=== PATIENT | male | born 1950 | race Caucasian/White ===

== ENCOUNTER 2021-05-03 14:24 | Inpatient (IN) ==
[2021-05-03] MEDS ORDERED: Acetaminophen 325 MG TABLET PO PRN (17:03)
[2021-05-03] MEDS ORDERED: Ondansetron 4 MG/2 ML VIAL IVP PRN (17:03)
[2021-05-03] MEDS ORDERED: Naloxone 0.4 MG/ML INJ IVP PRN (17:03)
[2021-05-03] MEDS ORDERED: Nitroglycerin 0.4 MG TAB.SUBL SL PRN (17:06)
[2021-05-03] MEDS ORDERED: Clotrimazole 1% CRM 15 GM TUBE TP PRN (17:06)
[2021-05-03] MEDS: Gabapentin 300 MG CAPSULE PO SCH (21:33)
[2021-05-03] MEDS: Budesonide/Formoterol 160/4.5 1 PUFF INH IH SCH (21:58)
[2021-05-04] MEDS ORDERED: *HR* Enoxaparin 40 MG/0.4 ML SYRINGE SQ SCH (06:00)
[2021-05-04] MEDS ORDERED: Levothyroxine 25 MCG TABLET PO SCH (06:30)
[2021-05-04 06:39] LABS: Hematocrit 37.4 % (37.5-50.1); Hemoglobin 12.6 g/dL (12.9-16.9); Mean Corpuscular HGB Conc 33.7 g/dL (31.6-35.5); Mean Corpuscular Hemoglobin 29.4 pg (28.0-33.3); Mean Corpuscular Volume 87.2 fL (83.0-100.0); Mean Platelet Volume 8.9 fL (9.4-12.4); Platelet Count 168 K/mcL (140-400); Red Blood Count 4.29 M/mcL (4.19-5.50); Red Cell Distribution Width 13.9 % (11.5-14.5); White Blood Count 6.7 K/mcL (4.3-11.1)
[2021-05-04 06:53] LABS: BUN/Creatinine Ratio 16 (6-26); Blood Urea Nitrogen 12 mg/dL (8-23); Calcium 8.2 mg/dL (8.6-10.3); Carbon Dioxide 27 mEq/L (23-29); Chloride 105 mEq/L (98-107); Chol/HDL Ratio 3.7 (0-4.9); Cholesterol 96 mg/dL (< 200); Glucose 107 mg/dL (70-105); HDL Cholesterol 26 mg/dL (40-59); LDL Cholesterol,Calculated 47 mg/dL (< 100); Magnesium 1.1 mg/dL (1.6-2.6); Osmolality,Calculated 292 (280-300); Sodium 141 mEq/L (136-145); Triglycerides 115 mg/dL (< 150); eGFR For African Americans > 60 (> 60); eGFR For Non-African Americans > 60 (> 60)
[2021-05-04] MEDS: Budesonide/Formoterol 160/4.5 1 PUFF INH IH SCH (08:00)
[2021-05-04] MEDS ORDERED: FLUoxetine 20 MG CAPSULE PO SCH (09:00)
[2021-05-04] MEDS: Gabapentin 300 MG CAPSULE PO SCH ×2 (09:45→14:14)
[2021-05-04] MEDS ORDERED: 0.9 % Sodium Chloride 1,000 ML IVC SCH (14:00)
[2021-05-04] MEDS ORDERED: Aspirin Enteric Coated 81 MG Tablet PO SCH (14:00)
[2021-05-04 16:21] VITALS: TEMP 97.9
[2021-05-04 20:17] VITALS: BP 171/78; PULSE 76; RESP 16; O2SAT 100
== END 2021-05-04 18:58 | disposition left against medical advice (07) ==
LOC: INPGRE
PROVIDERS: ADMIT Family Medicine; ATTEND Family Medicine